=== PATIENT | female | born 1965 | race Caucasian/White ===

== ENCOUNTER → 2020-12-03 | Day surgery (SDC) | payer OTHER ==
[~2020-12-03] VITALS: Ht 160 cm; Wt 117.0 kg
[~2020-12-03] MED LIST: ALBU2.5V8 IH; ALLO100T PO; ATOR40TA59 PO; BUDE10.2 IH; CARV25TA2 PO; CITA40TA5 PO; DICL20GE TP; DOXY100T PO; ESTR0.5T PO; EZET10TA20 PO; GABA600T7 PO; GLIM4TAB8 PO; INSU100V13 SQ; IV RINGERS,LACTATED 1000ML 1,000 ML IV SCH; LAMO25TA31 PO; LIDOCAINE 2% PF 5 ML VIAL. ONE; LORA10TA68 PO; METF-658 PO; METH-561 PO; PROPOFOL 10 MG/ML (20ML) VIAL. IV ONE; TRAM50TA PO; ePHEDrine PF IN SALINE 50 MG/10 ML SYRINGE. IV ONE
[2020-12-03 09:13] VITALS: BP 167/88
[2020-12-03 11:45] VITALS: BP 157/82
--- NOTE | 2020-12-03 12:06 | PREOP HP ---
DATE OF SERVICE: 12/03/2020 PREOPERATIVE HISTORY AND PHYSICAL DATE OF PROCEDURE: 12/03/2020. REQUESTING PHYSICIAN: Dr. Sylvia Corrigan. PRIMARY CARE PHYSICIAN: Dr. Sylvia Corrigan. REASON FOR PROCEDURE: Iron deficiency anemia. HISTORY OF PRESENT ILLNESS: This is a 55-year-old female who presents for anemia. She has undergone upper and lower endoscopy for further evaluation. ALLERGIES: 1. ASPERCREME. 2. RISPERIDONE. 3. ZITHROMAX. 4. NSAIDs. PAST MEDICAL HISTORY: Gastric bypass and anemia. FAMILY HISTORY: No colon cancer. MEDICATIONS: MAR reviewed. REVIEW OF SYSTEMS: A 13-point review of systems was done, it is positive as per HPI and otherwise negative. PHYSICAL EXAMINATION: VITAL SIGNS: She is afebrile and her vital signs are stable. GENERAL: She is an obese female in no apparent distress. HEENT: Oropharynx is clear. CARDIOVASCULAR: S1, S2. LUNGS: Clear. ABDOMEN: Normoactive bowel sounds, soft, nontender, nondistended. EXTREMITIES: No edema. NEUROLOGIC: Awake, alert and oriented x 3. ASSESSMENT AND PLAN: Iron deficiency anemia. She is to undergo upper and lower endoscopy for further evaluation. SRINIVASAN/JASPREET/KRZYSZTOF DR: SRINIVASAN/pat TID: [id number]
== END | disposition home or self-care (01) ==
LOC: ENDOS 07:57
PROVIDERS: ATTEND Internal Medicine Gastroenterology
DX: D50.9 Iron deficiency anemia, unspecified (principal); K64.0 First degree hemorrhoids; K63.5 Polyp of colon; K21.00 Gastro-esophageal reflux disease with esophagitis, without bleeding; K63.89 Other specified diseases of intestine; K31.89 Other diseases of stomach and duodenum; I10 Essential (primary) hypertension; J45.909 Unspecified asthma, uncomplicated; E66.9 Obesity, unspecified; G47.30 Sleep apnea, unspecified; F41.9 Anxiety disorder, unspecified; F32.9 Major depressive disorder, single episode, unspecified; E11.9 Type 2 diabetes mellitus without complications; M19.90 Unspecified osteoarthritis, unspecified site; M10.9 Gout, unspecified; Z79.4 Long term (current) use of insulin; Z79.899 Other long term (current) drug therapy; Z98.890 Other specified postprocedural states; Z88.1 Allergy status to other antibiotic agents; Z88.8 Allergy status to other drugs, medicaments and biological substances; Z80.0 Family history of malignant neoplasm of digestive organs
CPT/HCPCS: 43239; 45380; J2704; 88305; 88342